=== PATIENT | female | born 1985 | race Caucasian/White ===

== ENCOUNTER 2020-12-14 03:06 | Emergency (ER) | payer MEDICAID, SELFPAY ==
[2020-12-14 03:07] VITALS: BP 136/79; PULSE 88; RESP 16; TEMP 36.7; O2SAT 98; BMI 26.6
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
[2020-12-14] MEDS: morphine 4 mg/mL SDV 1 mL IVP (03:58)
[2020-12-14] MEDS: ondansetron 2 mg/ML SDV 2 mL 4 MG IVP (03:58)
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
--- NOTE | 2020-12-14 05:46 | PC.NURSE ---
[facility] in patient room
[2020-12-14 06:13] VITALS: BP 132/83; PULSE 87; RESP 17; O2SAT 96
== END 2020-12-14 06:13 | disposition home or self-care (01) ==
PROVIDERS: Emergency Provider Emergency Medicine; PCP Nurse Practitioner Family
DX: S06.0X0A Concussion without loss of consciousness, initial encounter (principal); S00.83XA Contusion of other part of head, initial encounter; S20.212A Contusion of left front wall of thorax, initial encounter; S02.2XXA Fracture of nasal bones, initial encounter for closed fracture; S31.150A Open bite of abdominal wall, right upper quadrant without penetration into peritoneal cavity, initial encounter; Y04.1XXA Assault by human bite, initial encounter; Y04.2XXA Assault by strike against or bumped into by another person, initial encounter
CPT/HCPCS: 70450; 70486; 71260; 72125; 73110; 74177; 96374; 96375; 99283; J2270; J2405; Q9967

== ENCOUNTER 2021-08-17 21:23 | Emergency (ER) | payer MEDICAID, SELFPAY ==
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
[2021-08-17 21:32] VITALS: BP 111/60; PULSE 105; RESP 17; O2SAT 97; BMI 23.3
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
[2021-08-17 22:02] LABS: Basophils % 0.5 %; Eosinophils % 0.4 %; Hematocrit 38.7 % (37.0-47.0); Hemoglobin 12.9 g/dL (11.5-15.3); Lymphocytes # 0.2 10^3/uL (0.8-4.8); Lymphocytes % 2.9 %; Mean Corpuscular HGB Conc 33.3 g/dL (30.0-36.0); Mean Corpuscular Hemoglobin 29.4 pg (28.0-34.0); Mean Corpuscular Volume 88.2 fl (81-99); Mean Platelet Volume 10.6 fL (7.4-10.4); Monocytes # 0.5 10^3/uL (0.2-0.9); Monocytes % 6.8 %; Neutrophils # 7.07 10^3/uL (1.8-7.7); Nucleated Red Blood Cells % 0 %; Platelet Count 250 10^3/cmm (130-400); Red Blood Count 4.39 10^6/uL (4.1-5.3); White Blood Count 7.9 10^3/uL (4.0-10.0)
[2021-08-17] MEDS: LORazepam 2 mg/mL INJ 1 mL IVP (22:02)
[2021-08-17 22:17] LABS: HCG, Serum Qual Negative (Negative)
[2021-08-17 22:26] LABS: Alanine Aminotransferase 8 U/L (0-33); Albumin Level 4.3 g/dL (3.5-5.2); Alkaline Phosphatase 92 IU/L (35-105); Aspartate Amino Transferase 14 U/L (0-32); Blood Urea Nitrogen 7 mg/dL (6-20); Calcium 9.6 mg/dL (8.5-10.5); Carbon Dioxide 21 mmol/L (22-29); Chloride 98 mmol/L (98-107); Globulin 2.2 g/dL (1.3-4.6); Glomerular Filtration Rate 94.7 mL/min (90-130); Glucose 77 mg/dL (65-115); Osmolality Calculated 277 mOsm/kg (285-295); Sodium 135 mmol/L (136-145); Total Bilirubin 0.4 mg/dL (0.15-1.2); Total Protein 6.5 g/dL (6.6-8.7)
[2021-08-17 22:27] LABS: Anion Gap 19.8 (5-19); Potassium 3.8 mmol/L (3.5-5.1)
[2021-08-17] MEDS: iohexol 300 mg/mL 100 mL Btl IV (22:45)
[2021-08-17 23:51] VITALS: BP 130/90; PULSE 108; RESP 16; O2SAT 94
== END 2021-08-17 23:53 | disposition home or self-care (01) ==
PROVIDERS: Emergency Provider Emergency Medicine; PCP Nurse Practitioner Family
DX: S00.81XA Abrasion of other part of head, initial encounter (principal); S80.12XA Contusion of left lower leg, initial encounter; Y04.2XXA Assault by strike against or bumped into by another person, initial encounter
CPT/HCPCS: 70450; 71260; 72125; 73590; 74177; 80053; 84703; 85025; 96374; 99284; J2060; Q9967